=== PATIENT | female | born 1985 | race Two or more races ===

== ENCOUNTER 2021-10-22 09:17 | Emergency (ER) | payer OTHER ==
[~2021-10-22] VITALS: Ht 157.5 cm; Wt 104.3 kg
[~2021-10-22 09:17] MED LIST: CEFADROXIL500 MG PO; KEFLEX500 MG PO; OBSTETRIX ONE1 EACH; PRENATAL + DHA1 EAC1 PO; ZANTAC25 MG/1 ML IJ; ZOFRAN4 MG PO
[2021-10-22] MEDS ORDERED: FLOVENT HFA12 GM (10:03)
[2021-10-22] MEDS ORDERED: ARIPIPRAZOLE2 MG PO (10:03)
[2021-10-22] MEDS ORDERED: VITAMIN D31250 MCG PO (10:04)
[2021-10-22] MEDS ORDERED: CETIRIZINE HCL10 MG PO (10:04)
[2021-10-22] MEDS ORDERED: MONTELUKAST SOD10 MG PO (10:05)
== END 2021-10-22 11:33 | disposition home or self-care (01) ==
LOC: ER 09:17
DX: J03.80 Acute tonsillitis due to other specified organisms (principal)